=== PATIENT | male | born 1985 ===

== ENCOUNTER 2021-06-23 11:21 | Emergency (ER) | payer OTHER ==
[~2021-06-23] VITALS: Ht 167.6 cm; Wt 62.6 kg
[2021-06-23] MEDS ORDERED: ACETAMINOPHEN 500 MG TABLET ONE (12:24)
[2021-06-23] MEDS ORDERED: CYCLOBENZAPRINE 10 MG TABLET ONE (12:25)
--- NOTE | 2021-06-23 12:28 | NUR ---
TASK RN: PT NOT IN ROOM WHEN GOING IN TO MEDICATE. UNK WHERE PT IS CURRENTLY. WILL LOOK AROUOND THE DEPT FOR PT.
[2021-06-23] MEDS ORDERED: ACETAMINOPHEN 500 MG TABLET PO ONE (12:30)
[2021-06-23] MEDS ORDERED: CYCLOBENZAPRINE 10 MG TABLET PO ONE (12:30)
[2021-06-23 13:03] VITALS: BP 124/74
== END 2021-06-23 13:05 | disposition home or self-care (01) ==
LOC: ED 13:00
DX: S39.012A Strain of muscle, fascia and tendon of lower back, initial encounter (principal); X58.XXXA Exposure to other specified factors, initial encounter; Y93.89 Activity, other specified; Y92.89 Other specified places as the place of occurrence of the external cause; Y99.8 Other external cause status
CPT/HCPCS: 99283